=== PATIENT | female | born 1960 | race Caucasian/White ===

== ENCOUNTER → 2025-01-11 08:42 | Outpatient (REF) | payer OTHER, MEDICARE, SELFPAY | LOC: HWRAD 08:42 | PROVIDERS: ATTENDING PHYSICIAN Internal Medicine Rheumatology; FAMILY PHYSICIAN Internal Medicine | DX: M81.0 Age-related osteoporosis without current pathological fracture (principal) | CPT/HCPCS: 77080 ==